=== PATIENT | male | born 1970 | race Caucasian/White ===

== ENCOUNTER → 2017-10-17 | Outpatient (CLI) | payer OTHER | LOC: RAD 07:59 | DX: R13.19 Other dysphagia (principal); R10.9 Unspecified abdominal pain; Z80.0 Family history of malignant neoplasm of digestive organs ==

== ENCOUNTER → 2018-09-23 | Outpatient (CLI) | payer OTHER | LOC: CV 09-05 13:20 | DX: G45.9 Transient cerebral ischemic attack, unspecified (principal); E78.00 Pure hypercholesterolemia, unspecified ==

== ENCOUNTER → 2018-10-16 | Outpatient (CLI) | payer OTHER ==
--- NOTE | ~2018-10-16 | EXE ---
[facility] [employer] [place] [address] STRESS ECHOCARDIOGRAM Name: MANJEET MAGALLANES Room #: REG CL Naif#: [id number] Admission: 10/16/18 Attend Phys: Theodore Abarca MD Discharge: Date of : 66 Date of Service: 10/16/18 1606 Report #: [id number] THIS REPORT FOR: //name// APPROVED REPORT Study performed: 10/16/2018 14:15:29 Exam: Stress Echocardiogram Indication: Dyspnea Patient Location: Out-Patient Stress Nurse: Olivia Abarac RN Room #: Echo lab 2 Ht: 5 ft 9 in HR: 59 bpm BP: 136/72 mmHg Rhythm: NSR Medical History Medical History: Hyperlipidemia Cardiac Risk Factors: FHX of CAD, Hyperlipidemia Exercise History: Physically active Procedure The patient underwent an Exercise Stress Test using the Martín Protocol. Blood pressure, heart rate, and EKG were monitored. An Echocardiogram was performed by light technician in four stages in quad fashion. At peak stress, four selected images were obtained and placed side by side with resting images for comparison. Stress Test Details Stress Test: Exercise stress testing was performed using a Martín protocol. HR Resting HR: 59 bpm Max Heart Rate (APMHR): 170 bpm Max HR Achieved: 171 bpm Target HR (85% APMHR): 144 bpm % of APMHR: 100 Recovery HR: 90 bpm HR response to stress: Normal HR response to stress BP Resting BP: 136/72 mmHg Max BP: 200/63 mmHg Recovery BP: 150/70 mmHg BP response to stress: Normal blood pressure response to stress. [facility] [address] [address] STRESS ECHOCARDIOGRAM Name: MANJEET MAGALLANES Room #: REG CL [facility]#: [id number] Admission: 10/16/18 Attend Phys: Theodore Abarca MD Discharge: Date of : 66 Date of Service: 10/16/18 1606 Report #: [id number] ECG Resting ECG: Sinus Rhythm Stress ECG: Sinus Rhythm ST Change: Non-ischemic Clinical Reason for Termination: Maximal effort Exercise duration: 13 min 47 sec Highest Stage Achieved: Stage 5: 5.0 mph at 18% grade. Exercise capacity: 17.5 METs Overall Exercise Capacity for Age: Excellent Pre-Stress Echo The resting Echocardiogram showed normal left ventricular contractility with an estimated Ejection Fraction of about >55%. Normal wall motion in all segments on baseline images. Post-Stress Echo The stress Echocardiogram showed normal left ventricular contractility with an estimated Ejection Fraction of about 65-70%. Normal augmentation of wall motion in all segments on post stress images. Clinical Normal augmentation of myocardial wall segments using a 17 segment model. Conclusion Clinical Response: Non-ischemic Exercise Capacity: Superior Stress ECG Response: Non-ischemic Stress Echo Images: Non-ischemic The left ventricle is normal in size and wall thickness in both the rest and stress images. Other Information Study Quality: Good <Conclusion> The left ventricle is normal in size and wall thickness in both the rest and stress images. <ELECTRONICALLY SIGNED> By: Theodore Abarca MD 10/16/18 1606 1606 1606 Theodore Abarca MD /INF
--- NOTE | ~2018-10-16 | 2DMMODE ---
[facility] [address] [place] [address] 2 D/M-MODE ECHOCARDIOGRAM Name: MANJEET MAGALLANES Room #: REG [facility]#: [id number] Admission: 10/16/18 Attend Phys: Theodore Abarca MD Discharge: Date of : 66 Date of Service: 10/16/18 1602 Report #: [id number] THIS REPORT FOR: //name// APPROVED REPORT Study performed: 10/16/2018 13:12:26 EXAM: Comprehensive 2D, Doppler, and color-flow Echocardiogram Patient Location: Out-Patient Room #: Echo lab 1 Status: routine BSA: 1.95 HR: 64 bpm BP: 136/72 mmHg Rhythm: NSR Other Information Study Quality: Good Indications Dyspnea HLP 2D Dimensions RVDd: 27.17 mm IVSd: 10.18 (7-11mm) LVOT Diam: 23.73 (18-24mm) LVDd: 42.55 mm PWd: 10.05 (7-11mm) Ascending Ao: 32.70 (22-36mm) LVDs: 31.64 (25-40mm) Aortic Root: 31.38 mm IVC: 20.00 mm Volumes Left Atrial Volume (Systole) Single Plane 4CH: 40.48 mL Single Plane 2CH: 65.94 mL LA ESV Index: 28.00 mL/m2 Aortic Valve AoV Peak Juanpablo.: 1.34 m/s AO Peak Gr.: 7.14 mmHg LVOT Max P.97 mmHg LVOT Max V: 1.00 m/s CORWIN Vmax: 3.30 cm2 Mitral Valve E/A Ratio: 1.3 MV Decel. Time: 203.27 ms [facility] [place] [address] [place] [address] 2 D/M-MODE ECHOCARDIOGRAM Name: MANJEET MAGALLANES Room #: REG [facility]#: [id number] Admission: 10/16/18 Attend Phys: Theodore Abarca MD Discharge: Date of : 66 Date of Service: 10/16/18 1602 Report #: [id number] MV E Max Juanpablo.: 0.71 m/s MV A Juanpablo.: 0.54 m/s MV PHT: 58.95 ms IVRT: 92.27 ms Pulmonary Valve PV Peak Juanpablo.: 1.08 m/s PV Peak Gr.: 4.64 mmHg Pulmonary Vein P Vein S: 0.48 m/s P Vein A: 0.24 m/s P Vein D: 0.41 m/s P Vein A Dur.: 133.8 msec P Vein S/D Ratio: 1.17 Tricuspid Valve TR Peak Juanpablo.: 1.96 m/s TR Peak Gr.: 15.37 mmHg PA Pressure: 20.00 mmHg Left Ventricle The left ventricle is normal size. There is normal LV segmental wall motion. There is normal left ventricular wall thickness. The left ventricular systolic function is normal. The left ventricular ejection fraction is within the normal range. LVEF is 55-60%. The left ventricular diastolic function is normal. Right Ventricle The right ventricle is normal size. The right ventricular systolic function is normal. Atria The left atrium size is normal. The right atrium size is normal. Aortic Valve The aortic valve is normal in structure. No aortic regurgitation is present. There is no aortic valvular stenosis. Mitral Valve The mitral valve is normal in structure. There is no mitral valve regurgitation noted. No evidence of mitral valve stenosis. Tricuspid Valve The tricuspid valve is normal in structure. There is trace tricuspid regurgitation. Estimated PAP 20 mmHg. There is no pulmonary hypertension. [address] [address] 2 D/M-MODE ECHOCARDIOGRAM Name: MANJEET MAGALLANES Room #: REG CL [facility]#: [id number] Admission: 10/16/18 Attend Phys: Theodore Abarca MD Discharge: Date of : 66 Date of Service: 10/16/18 1602 Report #: [id number] Pulmonic Valve The pulmonary valve is normal in structure. There is no pulmonic valvular regurgitation. Great Vessels The aortic root is normal in size. IVC is normal in size and collapses >50% with inspiration. Pericardium There is no pericardial effusion. <Conclusion> The left ventricle is normal size. There is normal left ventricular wall thickness. The left ventricular systolic function is normal. The left ventricular diastolic function is normal. The right ventricle is normal size. The left atrium size is normal. The aortic valve is normal in structure. The mitral valve is normal in structure. There is trace tricuspid regurgitation. Estimated PAP 20 mmHg. <ELECTRONICALLY SIGNED> By: Theodore Abarca MD 10/16/18 1602 160 160 Theodore Abarca MD /INF
== END ==
LOC: CV 08:35
DX: R06.09 Other forms of dyspnea (principal); E78.00 Pure hypercholesterolemia, unspecified

== ENCOUNTER → 2020-06-30 | Outpatient (CLI) | payer OTHER | LOC: LAB 15:24 | PROVIDERS: ATTEND Nurse Practitioner | DX: Z20.828 Contact with and (suspected) exposure to other viral communicable diseases (principal); Z01.84 Encounter for antibody response examination ==

== ENCOUNTER → 2020-09-29 | Outpatient (CLI) | payer OTHER ==
[2020-09-29 10:10] LABS: ABSOLUTE NEUTROPHILS 2.4 thou/uL (1.4-8.2); BASOPHILS 0.7 % (0.0-2.0); EOSINOPHILS 1.2 % (0.0-3.0); HEMATOCRIT 43.1 % (42.0-52.0); HEMOGLOBIN 14.6 gm/dL (14.0-18.0); LYMPHOCYTES 31.9 % (24.0-44.0); MCHC 33.9 g/dL (28.0-37.0); MCV 94.4 fL (80.0-100.0); MONOCYTES 10.7 % (1.0-8.0); PLATELET COUNT 233 thou/uL (150-400); POLYS 55.5 % (36.0-66.0); RBC 4.56 mil/uL (4.50-6.00); RDW 12.4 % (10.5-14.5); WBC 4.2 thou/uL (4.0-11.0)
[2020-09-29 10:53] LABS: ALBUMIN 4.5 g/dL (3.4-5.0); ANION GAP 6 mmol/L (7-16); BUN 12 mg/dL (7-18); CALCIUM 9.4 mg/dL (8.5-10.1); CHLORIDE 105 mmol/L (98-107); CHOLESTEROL 218 mg/dL (<200); CO2 29 mmol/L (21-32); CREATININE 0.9 mg/dL (0.7-1.3); GLUCOSE 98 mg/dL (74-106); HDL CHOLESTEROL 58 mg/dL (>40); LDL CHOLESTEROL 150 mg/dL (<100); POTASSIUM 4.4 mmol/L (3.5-5.1); SGOT 19 U/L (15-37); SGPT 27 U/L (30-65); SODIUM 140 mmol/L (136-145); TC:HDL 3.8 Ratio (Not establshd); TOTAL BILIRUBIN 1.8 mg/dL (0.2-1.0); TOTAL PROTEIN 6.9 g/dL (6.4-8.2); TRIGLYCERIDE 54 mg/dL (<150); VLDL 11 mg/dL (<40)
== END ==
LOC: LAB 08:12
PROVIDERS: ATTEND Nurse Practitioner
DX: E78.2 Mixed hyperlipidemia (principal); R00.2 Palpitations; N52.8 Other male erectile dysfunction; R35.0 Frequency of micturition

== ENCOUNTER → 2021-01-03 | Outpatient (CLI) | payer OTHER | LOC: LAB 14:46 | PROVIDERS: ATTEND Nurse Practitioner | DX: Z01.84 Encounter for antibody response examination (principal) ==

== ENCOUNTER → 2021-03-02 | Outpatient (CLI) | payer OTHER | LOC: LAB 15:45 | PROVIDERS: ATTEND Family Medicine | DX: R97.20 Elevated prostate specific antigen [PSA] (principal) ==

== ENCOUNTER → 2021-03-07 | Outpatient (CLI) | payer OTHER | LOC: RAD 11:22 | PROVIDERS: ATTEND Nurse Practitioner | DX: J34.89 Other specified disorders of nose and nasal sinuses (principal); M79.644 Pain in right finger(s); M25.559 Pain in unspecified hip ==